=== PATIENT | male | born 1970 | race Caucasian/White ===

== ENCOUNTER 2018-10-13 12:13 | Day surgery (SDC) | payer OTHER ==
[2018-10-13] MEDS ORDERED: PROPOFOL 60 ML (14:26)
[2018-10-13] MEDS ORDERED: LIDOCAINE 100 MG SYRINGE (14:26)
== END 2018-10-13 16:13 | disposition home or self-care (01) ==
LOC: GIL 12:13
DX: K57.30 Diverticulosis of large intestine without perforation or abscess without bleeding (principal); K64.0 First degree hemorrhoids; K63.5 Polyp of colon; I10 Essential (primary) hypertension; I69.351 Hemiplegia and hemiparesis following cerebral infarction affecting right dominant side
CPT/HCPCS: 45380; 88305